=== PATIENT | male | born 1995 | race African-American/Black ===

== ENCOUNTER 2017-04-14 17:21 | Emergency (ER) | payer MEDICAID ==
[~2017-04-14] VITALS: Ht 154.9 cm; Wt 63.0 kg
[2017-04-15] MEDS ORDERED: IBUPROFEN 800MG TABLET PO ONE (00:15)
[2017-04-15 00:41] LABS: HEMATOCRIT. 36.9 % (42.0-52.0); HEMOGLOBIN. 11.9 g/dL (14.0-18.0); MEAN CORPUSCULAR HEMOGLOBIN 23.5 pg (28.0-32.0); MEAN CORPUSCULAR VOLUME 72.9 fL (80.0-94.0); MEAN PLATELET VOLUME 8.6 fl (7.4-10.4); PLATELET 180 x1000/uL (130-400); RED BLOOD CELL COUNT 5.06 mill/uL (4.7-6.1); RED CELL DISTRIBUTION WIDTH 14.6 % (11.6-14.6)
[2017-04-15 00:42] LABS: CHLORIDE 102 mEq/L (98-107)
[2017-04-15 00:51] LABS: CARBON DIOXIDE 30 mEq/L (21-32)
[2017-04-15 01:18] LABS: CLARITY URINE CLEAR (CLEAR); COLOR URINE DARK YELLOW (YELLOW); GLUCOSE URINE NEGATIVE (NEGATIVE); KETONES URINE TRACE (NEGATIVE); LEUKOCYTE ESTERASE URINE 2+ (NEGATIVE); NITRITE URINE NEGATIVE (NEGATIVE); OCCULT BLOOD URINE NEGATIVE (NEGATIVE); PH URINE 6.5 (4.5-8.0); PROTEIN URINE TRACE (NEGATIVE); SPECIFIC GRAVITY URINE 1.036 (1.005-1.030)
[2017-04-15 01:33] LABS: *AMPHETAMINES SCREEN URINE NEGATIVE (NEGATIVE); *BARBITURATES SCREEN URINE NEGATIVE (NEGATIVE); *BENZODIAZEPINES SCREEN URINE NEGATIVE (NEGATIVE); *COCAINE SCREEN URINE NEGATIVE (NEGATIVE); CANNABINOID URINE SCREEN PRESUMTIVE POSITIVE (NEGATIVE); METHADONE URINE SCREEN NEGATIVE (NEGATIVE); OPIATES URINE SCREEN NEGATIVE (NEGATIVE); PHENCYCLIDINE URINE SCREEN NEGATIVE (NEGATIVE)
[2017-04-15] MEDS ORDERED: CEFTRIAXONE 1 G PREMIX 50 ML IV ONE (01:45)
[2017-04-15] MEDS ORDERED: SODIUM CHLORIDE 0.9% 1,000 ML IV ONE (01:45)
[2017-04-15 03:35] VITALS: BP 97/51
[2017-04-15 04:27] LABS: PLATELET ESTIMATE NORMAL
== END 2017-04-15 03:56 | disposition home or self-care (01) ==
LOC: ER 04-15 00:51
DX: R51 Headache (principal); N39.0 Urinary tract infection, site not specified; I95.9 Hypotension, unspecified; R50.9 Fever, unspecified; F17.200 Nicotine dependence, unspecified, uncomplicated; F12.10 Cannabis abuse, uncomplicated
CPT/HCPCS: 36415; 80053; 80305; 81001; 83605; 85025; 96365; 96366; 99285; J0696; J7030; Z7610

== ENCOUNTER 2021-05-31 14:41 | Emergency (ER) | payer MEDICAID, OTHER ==
[~2021-05-31] VITALS: Ht 157.5 cm; Wt 65.0 kg
[2021-05-31] MEDS ORDERED: LIDOCAINE HCL/EPINEPHRINE 1%-EPI 1:100,000 20 ML VIAL INFIL ONE (15:45)
[2021-05-31] MEDS ORDERED: BACITRACIN ZINC OINT UDPKT TOP ONE (15:45)
[2021-05-31] MEDS ORDERED: ACET-2708 MT (17:26)
[2021-05-31] MEDS ORDERED: SULF1TAB48 MT (17:26)
[2021-05-31] MEDS ORDERED: IBUPROFEN 400MG TABLET PO ONE (17:30)
[2021-05-31] MEDS ORDERED: ACETAMINOPHEN 325MG TABLET PO ONE (17:30)
[2021-05-31] MEDS ORDERED: SULFAMETHOXAZOLE/TRIMETHOPRIM 800/160MG TABLET PO ONE (17:30)
[2021-05-31 17:42] VITALS: BP 100/50
== END 2021-05-31 17:46 | disposition home or self-care (01) ==
LOC: ER 14:41
DX: L02.01 Cutaneous abscess of face (principal); F12.10 Cannabis abuse, uncomplicated; Z91.19 Patient's noncompliance with other medical treatment and regimen
CPT/HCPCS: 99283; J3490; Z7610

== ENCOUNTER 2021-06-04 13:51 | Emergency (ER) | payer OTHER ==
[~2021-06-04] VITALS: Ht 177.8 cm; Wt 64.0 kg
[~2021-06-04 13:51] MED LIST: ACET-2708 MT; SULF1TAB48 MT
[2021-06-04 16:24] VITALS: BP 113/76
== END 2021-06-04 16:25 | disposition home or self-care (01) ==
LOC: ER 13:51
DX: Z48.00 Encounter for change or removal of nonsurgical wound dressing (principal); F12.10 Cannabis abuse, uncomplicated; I49.9 Cardiac arrhythmia, unspecified
CPT/HCPCS: 93005; 99283

== ENCOUNTER 2022-06-01 20:25 | Emergency (ER) | payer OTHER ==
[~2022-06-01] VITALS: Ht 165.1 cm; Wt 66.0 kg
[2022-06-01 20:37] VITALS: BP 95/56
== END 2022-06-01 23:50 | disposition left against medical advice (07) ==
LOC: ER 20:25
DX: R07.89 Other chest pain (principal); F12.10 Cannabis abuse, uncomplicated
CPT/HCPCS: 93005; 99283

== ENCOUNTER 2022-06-02 08:11 | Emergency (ER) | payer MEDICAID, OTHER ==
[~2022-06-02] VITALS: Ht 167.6 cm; Wt 75.0 kg
[2022-06-02 08:13] VITALS: BP 97/47
[2022-06-02] MEDS ORDERED: SODIUM CHLORIDE 0.9% 1,000 ML IV ONE (09:15)
[2022-06-02] MEDS ORDERED: ONDANSETRON HCL 4MG/2ML INJ IV ONE (09:15)
[2022-06-02 09:19] LABS: CLARITY URINE TURBID (CLEAR); COLOR URINE YELLOW (YELLOW); KETONES URINE 1+ (NEGATIVE); LEUKOCYTE ESTERASE URINE TRACE (NEGATIVE); NITRITE URINE NEGATIVE (NEGATIVE); OCCULT BLOOD URINE NEGATIVE (NEGATIVE); PROTEIN URINE 1+ (NEGATIVE); SPECIFIC GRAVITY URINE 1.029 (1.005-1.030)
[2022-06-02 09:57] LABS: HEMATOCRIT. 38.7 % (42.0-52.0); HEMOGLOBIN. 12.3 g/dL (14.0-18.0); MEAN CORPUSCULAR HEMOGLOBIN 24.2 pg (28.0-32.0); MEAN CORPUSCULAR VOLUME 75.8 fL (80.0-94.0); MEAN PLATELET VOLUME 8.3 fl (7.4-10.4); PLATELET 255 x1000/uL (130-400); RED BLOOD CELL COUNT 5.11 mill/uL (4.7-6.1); RED CELL DISTRIBUTION WIDTH 15.2 % (11.6-14.6)
[2022-06-02 10:02] LABS: CHLORIDE 103 mEq/L (98-107)
[2022-06-02 10:10] LABS: ETHANOL BLOOD < 10 mg/dL
[2022-06-02 10:40] LABS: PLATELET ESTIMATE NORMAL
== END 2022-06-02 12:36 | disposition left against medical advice (07) ==
LOC: ER 08:11
DX: R11.2 Nausea with vomiting, unspecified (principal); F12.10 Cannabis abuse, uncomplicated; Z20.822 Contact with and (suspected) exposure to COVID-19
CPT/HCPCS: 36415; 71045; 80053; 80320; 81003; 83690; 85025; 87426; 96361; 96374; 99284; C9803; J2405; J7030; G0480

== ENCOUNTER 2024-03-04 11:53 | Emergency (ER) | payer MEDICAID, OTHER ==
[~2024-03-04] VITALS: Ht 182.9 cm; Wt 73.0 kg
[2024-03-04 12:01] VITALS: O2SAT 98
[2024-03-04 12:33] VITALS: BP 110/63; PULSE 114; RESP 20; TEMP 98.1
[2024-03-04 13:03] LABS: BASOPHILS % 0.2 % (0.0-2.0); DIFFERENTIAL COMMENT 0; HEMATOCRIT. 36.6 % (42.0-52.0); HEMOGLOBIN. 11.7 g/dL (14.0-18.0); LYMPHOCYTES % 19.1 % (20.0-50.0); MEAN CORPUSCULAR HEMOGLOBIN 24.2 pg (28.0-32.0); MEAN CORPUSCULAR HGB CONC 31.9 g/dL (31.0-37.0); MEAN PLATELET VOLUME 8.5 fl (7.4-10.4); MONOCYTES % 13.6 % (2.0-8.0); NEUTROPHILS % 66.1 % (40.0-76.0); PLATELET 238 x1000/uL (130-400); RED BLOOD CELL COUNT 4.81 mill/uL (4.7-6.1); RED CELL DISTRIBUTION WIDTH 16.9 % (11.6-14.6); WHITE BLOOD COUNT 5.8 x1000/uL (4.5-11.0)
[2024-03-04 13:05] LABS: CARBON DIOXIDE 26 mEq/L (21-32); CHLORIDE 103 mEq/L (98-107); POTASSIUM 3.1 mEq/L (3.5-5.1); SODIUM 137 mEq/L (136-145)
[2024-03-04 13:06] LABS: CALCIUM 9.6 mg/dL (8.7-10.4)
[2024-03-04 13:10] LABS: CREATININE 1.2 mg/dL (0.6-1.3)
[2024-03-04 13:11] LABS: GLUCOSE 142 mg/dL (70-105); UREA NITROGEN BLOOD 11 mg/dL (9-23)
[2024-03-04 13:20] LABS: ETHANOL BLOOD < 10 mg/dL (<10)
== END 2024-03-04 14:40 | disposition home or self-care (01) ==
LOC: ER 11:53
DX: F23 Brief psychotic disorder (principal); F12.90 Cannabis use, unspecified, uncomplicated
CPT/HCPCS: 36415; 80048; 80320; 85025; 99284; G0480

== ENCOUNTER 2024-03-05 02:34 | Emergency (ER) | payer OTHER ==
[~2024-03-05] VITALS: Ht 175.3 cm; Wt 75.0 kg
[2024-03-05 02:35] VITALS: O2SAT 98
[2024-03-05] MEDS: SODIUM CHLORIDE 0.9% 1,000 ML IV ONE (03:59)
[2024-03-05 08:00] VITALS: BP 118/67; PULSE 82; RESP 17; TEMP 97.9
== END 2024-03-05 08:15 | disposition home or self-care (01) ==
LOC: ER 02:34
DX: F10.129 Alcohol abuse with intoxication, unspecified (principal); F12.10 Cannabis abuse, uncomplicated; Y90.5 Blood alcohol level of 100-119 mg/100 ml
CPT/HCPCS: 80320; 36415; 96360; 96361; 99283; J7030; Z7610; G0480